=== PATIENT | female | born 1990 | race Caucasian/White ===

== ENCOUNTER 2019-01-15 18:25 | Emergency (ER) | payer BC, OTHER ==
--- NOTE | 2019-01-15 19:19 | EDPHYS ---
Physician Documentation [facility] Name: Darshana Monge Age: 28 yrs Sex: Female : 1990 Arrival Date: 01/15/2019 Time: 18:26 Bed 26 Private MD: ED Physician Yakov Conde HPI: 01/15 19:11 This 28 yrs old Female presents to ER via Ambulatory with complaints of jr8 Allergic Reaction. 19:11 The patient presents with rash. Onset: The symptoms/episode began/occurred gradually, 2 jr8 day(s) ago, and became worse. Associated signs and symptoms: Pertinent positives: itching. Possible causes: NSAIDs, etodolac. At home the patient or guardian has treated the symptoms with nothing. Severity of symptoms: At their worst the symptoms were mild in the emergency department the symptoms are unchanged. The patient has not experienced similar symptoms in the past. The patient has not recently seen a physician. was started on etodolac for tennis elbow. Since on it has developed rash that itches . 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 - Social history:: Smoking status: Patient/guardian denies using tobacco. - Ebola Screening: : Patient negative for fever greater than or equal to 101.5 degrees Fahrenheit, and additional compatible Ebola Virus Disease symptoms Patient denies exposure to infectious person Patient denies travel to an Ebola-affected area in the 21 days before illness onset No symptoms or risks identified at this time. ROS: 19:11 Eyes: Negative for injury, pain, redness, and discharge, ENT: Negative for injury, jr8 pain, and discharge, Neck: Negative for injury, pain, and swelling, Cardiovascular: Negative for chest pain, palpitations, and edema, Respiratory: Negative for shortness of breath, cough, wheezing, and pleuritic chest pain, Abdomen/GI: Negative for abdominal pain, nausea, vomiting, diarrhea, and constipation, Back: Negative for injury and pain, MS/Extremity: Negative for injury and deformity, Neuro: Negative for headache, weakness, numbness, tingling, and seizure. 19:11 Skin: Positive for rash. Exam: 19:11 Eyes: Pupils equal round and reactive to light, extra-ocular motions intact. Lids and jr8 lashes normal. Conjunctiva and sclera are non-icteric and not injected. Cornea within normal limits. Periorbital areas with no swelling, redness, or edema. ENT: Nares patent. No nasal discharge, no septal abnormalities noted. Tympanic membranes are normal and external auditory canals are clear. Oropharynx with no redness, swelling, or masses, exudates, or evidence of obstruction, uvula midline. Mucous membranes moist. Neck: Trachea midline, no thyromegaly or masses palpated, and no cervical lymphadenopathy. Supple, full range of motion without nuchal rigidity, or vertebral point tenderness. No Meningismus. Cardiovascular: Regular rate and rhythm with a normal S1 and S2. No gallops, murmurs, or rubs. Normal PMI, no JVD. No pulse deficits. Respiratory: Lungs have equal breath sounds bilaterally, clear to auscultation and percussion. No rales, rhonchi or wheezes noted. No increased work of breathing, no retractions or nasal flaring. Abdomen/GI: Soft, non-tender, with normal bowel sounds. No distension or tympany. No guarding or rebound. No evidence of tenderness throughout. Back: No spinal tenderness. No costovertebral tenderness. Full range of motion. MS/ Extremity: Pulses equal, no cyanosis. Neurovascular intact. Full, normal range of motion. Neuro: Awake and alert, GCS 15, oriented to person, place, time, and situation. Cranial nerves II-XII grossly intact. Motor strength 5/5 in all extremities. Sensory grossly intact. Cerebellar exam normal. Normal gait. 19:11 Skin: rash a mild rash is noted, rash can be described as erythematous, papular, and is diffusely located. Vital Signs: 18:43 BP 120 / 79; Pulse 84; Resp 16; Temp 97.8; Pulse Ox 100% on R/A; Weight 81.65 kg; iw Height 5 ft. 4 in. (162.56 cm); 19:30 BP 125 / 81; Pulse 87; Resp 18 S; Pulse Ox 100% on R/A; ca1 18:43 Body Mass Index 30.90 (81.65 kg, 162.56 cm) MDM: 19:05 Patient medically screened. jr8 19:11 Data reviewed: vital signs, nurses notes, and as a result, I will discharge patient. jr8 Data interpreted: Pulse oximetry: on room air is 100 %. Interpretation: normal. Counseling: I had a detailed discussion with the patient and/or guardian regarding: the historical points, exam findings, and any diagnostic results supporting the discharge/admit diagnosis, the need for outpatient follow up, a family practitioner, to return to the emergency department if symptoms worsen or persist or if there are any questions or concerns that arise at home. Administered Medications: 19:12 Drug: Benadryl 25 mg Route: PO; ca1 19:24 Follow up: Response: Medication administered at discharge. ca1 19:13 Drug: Pepcid 20 mg Route: PO; ca1 19:24 Follow up: Response: Medication administered at discharge. ca1 19:15 Drug: SOLU-Medrol 125 mg Route: IM; Site: right gluteus; ca1 19:24 Follow up: Response: Medication administered at discharge. ca1 Disposition: 01/15/19 19:18 Discharged to Home. Impression: Acute Allergic Reaction . - Condition is Stable. - Discharge Instructions: Anaphylactic Reaction, Adult. - Prescriptions for Pepcid 20 mg Oral Tablet - take 1 tablet by ORAL route every 12 hours for 5 days; 10 tablet. Prednisone 20 mg Oral Tablet - take 1 tablet by ORAL route once daily for 5 days; 5 tablet. - Medication Reconciliation Form, Thank You Letter, Antibiotic Education, Prescription Opioid Use form. - Follow up: Private Physician; When: 5 - 6 days; Reason: Recheck today's complaints, Continuance of care, Re-evaluation by your physician. - Problem is new. - Symptoms have improved. - Notes: Benadryl OTC 25 mg as needed for rash and itching Signatures: Kyleigh Tolbert, RN RN Luis Enrique Daly PA PA jr8 Mariana Crowley RN RN ca1 Corrections: (The following items were deleted from the chart) 19:32 19:18 01/15/2019 19:18 Discharged to Home. Impression: Acute Allergic Reaction . ca1 Condition is Stable. Forms are Medication Reconciliation Form, Thank You Letter, Antibiotic Education, Prescription Opioid Use. Follow up: Private Physician; When: 5 - 6 days; Reason: Recheck today's complaints, Continuance of care, Re-evaluation by your physician. Problem is new. Symptoms have improved. jr8
--- NOTE | 2019-01-15 19:19 | ER ---
Nurse's Notes [facility] Name: Darshana Monge Age: 28 yrs Sex: Female : 1990 Arrival Date: 01/15/2019 Time: 18:26 Bed 26 Private MD: Diagnosis: Acute Allergic Reaction Presentation: 01/15 18:40 Presenting complaint: Patient states: believes she is having allergic reaction to iw etodolac that she started last Friday, c/o rash and sore throat, no fever. Transition of care: patient was not received from another setting of care. 18:40 Method Of Arrival: Ambulatory iw 18:42 Onset of symptoms was January 12, 2019. Risk Assessment: Do you want to hurt yourself or iw someone else? Patient reports no desire to harm self or others. Initial Sepsis Screen: Does the patient meet any 2 criteria? No. Patient's initial sepsis screen is negative. Does the patient have a suspected source of infection? No. Patient's initial sepsis screen is negative. Care prior to arrival: None. 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 - Social history:: Smoking status: Patient/guardian denies using tobacco. - Ebola Screening: : Patient negative for fever greater than or equal to 101.5 degrees Fahrenheit, and additional compatible Ebola Virus Disease symptoms Patient denies exposure to infectious person Patient denies travel to an Ebola-affected area in the 21 days before illness onset No symptoms or risks identified at this time. Screenin:02 Abuse screen: Denies threats or abuse. Denies injuries from another. Nutritional ca1 screening: No deficits noted. Tuberculosis screening: No symptoms or risk factors identified. Fall Risk None identified. Assessment: 19:02 General: Appears in no apparent distress. comfortable, Behavior is calm, cooperative, ca1 appropriate for age. Pain: Denies pain. Neuro: Level of Consciousness is awake, alert, obeys commands, Oriented to person, place, time, situation. Cardiovascular: Heart tones S1 S2 present Capillary refill < 3 seconds Patient's skin is warm and dry. Respiratory: Airway is patent Respiratory effort is even, unlabored, Respiratory pattern is regular, symmetrical, Breath sounds are clear bilaterally. GI: Abdomen is round non-distended, Bowel sounds present X 4 quads. Abd is soft and non tender X 4 quads. : No deficits noted. No signs and/or symptoms were reported regarding the genitourinary system. EENT: No deficits noted. No signs and/or symptoms were reported regarding the EENT system. Derm: Skin is intact, is healthy with good turgor, Skin is pink, warm \T\ dry. Rash noted that is red, raised, on right arm and left arm Reports itching. Musculoskeletal: Circulation, motion, and sensation intact. Capillary refill < 3 seconds. 19:30 Reassessment: Patient appears in no apparent distress at this time. Patient and/or ca1 family updated on plan of care and expected duration. Pain level reassessed. Patient is alert, oriented x 3, equal unlabored respirations, skin warm/dry/pink. Vital Signs: 18:43 BP 120 / 79; Pulse 84; Resp 16; Temp 97.8; Pulse Ox 100% on R/A; Weight 81.65 kg; iw Height 5 ft. 4 in. (162.56 cm); 19:30 BP 125 / 81; Pulse 87; Resp 18 S; Pulse Ox 100% on R/A; ca1 18:43 Body Mass Index 30.90 (81.65 kg, 162.56 cm) iw ED Course: 18:26 Patient arrived in ED. rg4 18:42 Triage completed. iw 18:43 Arm band placed on. iw 18:58 Mariana Crowley, RN is Primary Nurse. ca1 19:02 Patient has correct armband on for positive identification. Bed in low position. Call ca1 light in reach. Side rails up X 1. Pulse ox on. NIBP on. Warm blanket given. 19:05 Luis Enrique Daly PA is PHCP. jr8 19:05 Yakov Conde MD is Attending Physician. jr8 19:31 No provider procedures requiring assistance completed. Patient did not have IV access ca1 during this emergency room visit. Administered Medications: 19:12 Drug: Benadryl 25 mg Route: PO; ca1 19:24 Follow up: Response: Medication administered at discharge. ca1 19:13 Drug: Pepcid 20 mg Route: PO; ca1 19:24 Follow up: Response: Medication administered at discharge. ca1 19:15 Drug: SOLU-Medrol 125 mg Route: IM; Site: right gluteus; ca1 19:24 Follow up: Response: Medication administered at discharge. ca1 Outcome: 19:18 Discharge ordered by MD. oden 19:31 Discharged to home ambulatory. ca1 19:31 Condition: stable 19:31 Discharge instructions given to patient, Instructed on discharge instructions, follow up and referral plans. medication usage, Demonstrated understanding of instructions, follow-up care, medications, Prescriptions given X 2. 19:32 Patient left the ED. ca1 Signatures: Kyleigh Tolbert, RN RN Luis Enrique Farrell PA PA jr8 Garcia, Rubi rg4 Mariana Crowley RN RN ca1
[2019-01-15] MEDS ORDERED: METHYLPREDNISOLONE 125 MG INJ ONE (19:31)
[2019-01-15] MEDS ORDERED: DIPHENHYDRAMINE 25 MG TAB/CAP ONE (19:31)
[2019-01-15] MEDS ORDERED: FAMOTIDINE 20 MG TAB ONE (19:31)
[2019-01-15 20:10] VITALS: TEMP 97.8; O2SAT 100
[2019-01-15 20:18] VITALS: BP 125/81
== END 2019-01-15 19:32 | disposition home or self-care (01) ==
LOC: ER 18:25
DX: T39.395A Adverse effect of other nonsteroidal anti-inflammatory drugs [NSAID], initial encounter (principal); Y92.9 Unspecified place or not applicable
CPT/HCPCS: J2930

== ENCOUNTER 2019-03-05 17:45 | Emergency (ER) | payer BC ==
[2019-03-05 18:28] LABS: Absolute Lymphocytes (CBC) 2.9 K/uL (0.7-4.9); Absolute Monocytes 0.9 K/uL (0.1-1.3); Absolute Neutrophil 5.8 K/uL (1.8-8.0); Basophils % 0.7 % (0-1.3); Eosinophils % 3.6 % (0-4.4); Hematocrit 37.5 % (36.0-45.0); Lymphocytes % 28.7 % (15.3-44.8); MPV 8.9 fL (7.6-11.3); Monocytes % 8.7 % (3.3-12.3); RBC Red Blood Cell Count 4.19 M/uL (3.86-4.86)
[2019-03-05 18:39] LABS: Urine Blood 1+ (NEG); Urine Glucose NEGATIVE (NEG); Urine Protein 1+ (NEG); Urine Specific Gravity >1.030 (1.005-1.030); Urine pH 5.5 (5.0-7.0)
[2019-03-05 18:45] LABS: Albumin 3.9 g/dL (3.4-5.0); Bilirubin Direct 0.1 mg/dL (0-0.2); Bilirubin Total 0.4 mg/dL (0.2-1.0); Potassium 3.2 mmol/L (3.5-5.1); Protein, Total 7.3 g/dL (6.4-8.2)
--- NOTE | 2019-03-05 19:08 | RAD REPORT ---
EXAM DESCRIPTION: US - Abdomen Exam Limited - 03/05/2019 6:54 pm CLINICAL HISTORY: Abdominal pain. COMPARISON: None. FINDINGS: Multiple gallstones. Mild gallbladder wall thickening. The biliary tree is upper limits normal caliber IMPRESSION: Cholelithiasis. Mild gallbladder wall thickening may indicate cholecystitis.
--- NOTE | 2019-03-05 20:04 | EDPHYS ---
Physician Documentation [facility] Name: Darshana Monge Age: 28 yrs Sex: Female : 1990 Arrival Date: 03/05/2019 Time: 17:47 Bed 15 Private MD: ED Physician Zechariah Langford HPI: 03/05 18:00 This 28 yrs old Female presents to ER via Ambulatory with complaints of cp Abdominal Pain. 18:00 The patient presents with abdominal pain in the epigastric area, in the right upper cp quadrant. Onset: The symptoms/episode began/occurred 5 day(s) ago. The symptoms do not radiate. 18:00 Associated signs and symptoms: Pertinent positives: nausea, Pertinent negatives: blood cp in stools, chest pain, constipation, diarrhea, dysuria, fever, vomiting. 18:00 Modifying factors: the symptoms are aggravated by pressure. 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 - Social history:: Smoking status: Patient/guardian denies using tobacco. - Ebola Screening: : No symptoms or risks identified at this time. ROS: 18:05 Eyes: Negative for injury, pain, redness, and discharge. cp 18:05 Constitutional: Negative for body aches, chills, fever, poor PO intake. 18:05 ENT: Negative for drainage from ear(s), ear pain, sore throat, difficulty swallowing, cp difficulty handling secretions. 18:05 Cardiovascular: Negative for chest pain, palpitations. 18:05 Respiratory: Negative for cough, shortness of breath, wheezing. 18:05 Abdomen/GI: Positive for abdominal pain, nausea, Negative for vomiting, diarrhea, constipation, anorexia, black/tarry stool, rectal bleeding. 18:05 Back: Negative for pain at rest, pain with movement, radiated pain. 18:05 : Negative for urinary symptoms, vaginal bleeding, vaginal discharge. 18:05 Skin: Negative for rash. 18:05 Neuro: Negative for dizziness, weakness. 18:05 All other systems are negative. Exam: 18:15 Constitutional: The patient appears in no acute distress, alert, awake, non-toxic, well cp developed, well nourished. 18:15 Head/Face: Normocephalic, atraumatic. cp 18:15 Eyes: Periorbital structures: appear normal, Conjunctiva: normal, no exudate, no injection, Sclera: no appreciated abnormality, Lids and lashes: appear normal, bilaterally. 18:15 ENT: External ear(s): are unremarkable, Nose: is normal, Mouth: is normal, Posterior pharynx: is normal, airway is patent. 18:15 Neck: ROM/movement: is normal, is supple, without pain, no range of motions limitations, no nuchal rigidity. 18:15 Chest/axilla: Inspection: normal. 18:15 Cardiovascular: Rate: normal, Rhythm: regular. 18:15 Respiratory: the patient does not display signs of respiratory distress, Respirations: normal, no use of accessory muscles, no retractions, labored breathing, is not present. 18:15 Abdomen/GI: Inspection: abdomen appears normal, Bowel sounds: active, all quadrants, Palpation: soft, in all quadrants, mild abdominal tenderness, in the epigastric area and right upper quadrant, rebound tenderness, is not appreciated, involuntary guarding, is not appreciated. 18:15 Back: pain, is absent, ROM is normal. Vital Signs: 17:50 BP 136 / 76; Pulse 84; Resp 16 S; Temp 98.5(TE); Pulse Ox 99% on R/A; Weight 84.82 kg aa5 (R); Height 5 ft. 4 in. (162.56 cm) (R); Pain 5/10; 18:42 BP 132 / 70; Pulse 88; Resp 16; Pulse Ox 100% on R/A; Pain 5/10; sg 19:40 BP 100 / 51; Pulse 65; Resp 18; Pulse Ox 100% on R/A; wh 17:50 Body Mass Index 32.10 (84.82 kg, 162.56 cm) aa5 MDM: 17:59 Patient medically screened. cp 18:00 Differential diagnosis: pancreatitis, Pyelonephritis, Ureterolithiasis, urinary tract cp infection. 20:00 Data reviewed: vital signs, nurses notes, lab test result(s), radiologic studies, CT cp scan. 20:01 Counseling: I had a detailed discussion with the patient and/or guardian regarding: the cp historical points, exam findings, and any diagnostic results supporting the discharge/admit diagnosis, lab results, radiology results, to return to the emergency department if symptoms worsen or persist or if there are any questions or concerns that arise at home. 20:01 Response to treatment: the patient's symptoms have markedly improved after treatment, cp and as a result, I will discharge patient. 03/05 18:02 Order name: Basic Metabolic Panel; Complete Time: 19:50 cp 03/05 18:02 Order name: CBC with Diff; Complete Time: 19:50 cp 03/05 18:02 Order name: Creatinine for Radiology; Complete Time: 19:50 cp 03/05 18:02 Order name: Hepatic Function; Complete Time: 19:50 cp 03/05 18:02 Order name: Lipase; Complete Time: 19:50 cp 03/05 18:09 Order name: Urine Dipstick--Ancillary (enter results); Complete Time: 19:50 ms 03/05 17:54 Order name: Urine Dipstick-Ancillary (obtain specimen); Complete Time: 18:26 cp 03/05 17:54 Order name: Urine Test (obtain specimen); Complete Time: 18:26 cp 03/05 18:02 Order name: IV Saline Lock; Complete Time: 18:26 cp 03/05 18:02 Order name: Labs collected and sent; Complete Time: 18:26 cp 03/05 18:02 Order name: US Abdomen Limited: epigastric/RUQ pain; Complete Time: 19:50 cp 03/05 18:09 Order name: Urine --Ancillary (enter results); Complete Time: 19:50 ms Administered Medications: 20:17 Drug: GI Cocktail without - (Maalox Suspension 30 ml, Lidocaine Liquid 2 % 15 wh ml) Route: PO; 20:27 Follow up: Response: No adverse reaction 20:17 Drug: Potassium Effervescent Tablet 50 mEq Route: PO; 20:27 Follow up: Response: No adverse reaction Disposition: 03/05/19 20:02 Discharged to Home. Impression: Cholelithiasis. - Condition is Stable. - Discharge Instructions: Biliary Colic, Adult, Cholelithiasis. - Prescriptions for Bentyl 20 mg Oral Tablet - take 2 tablet by ORAL route every 6 hours As needed; 40 tablet. Zofran 4 mg Oral Tablet - take 1 tablet by ORAL route every 12 hours As needed; 20 tablet. - Medication Reconciliation Form, Thank You Letter, Antibiotic Education, Prescription Opioid Use form. - Follow up: Chet Aparicio MD; When: 2 - 3 days; Reason: cholelithiasis. - Problem is new. - Symptoms have improved. Addendum: 03/08/2019 11:56 Co-signature as Attending Physician, Zechariah Langford MD I agree with the assessment and k dr plan of care. Signatures: Dispatcher [employer] EDOR Zechariah Langford MD MD [facility] Sheree Carlton RN RN aa5 Jerome Clifton PA PA Radha Johnson Corrections: (The following items were deleted from the chart) 03/05 17:50 17:48 Allergies: No Known Allergies; aa5 aa5 17:50 17:50 Allergies: edolorac; aa5 aa5 20:28 20:02 03/05/2019 20:02 Discharged to Home. Impression: Cholelithiasis. Condition is wh Stable. Forms are Medication Reconciliation Form, Thank You Letter, Antibiotic Education, Prescription Opioid Use. Follow up: Dr. Chet Aparicio; When: 2 - 3 days; Reason: cholelithiasis. Problem is new. Symptoms have improved. cp
--- NOTE | 2019-03-05 20:04 | ER ---
Nurse's Notes [facility] Name: Darshana Monge Age: 28 yrs Sex: Female : 1990 Arrival Date: 03/05/2019 Time: 17:47 Bed 15 Private MD: Diagnosis: Cholelithiasis Presentation: 03/05 17:48 Presenting complaint: Patient states: RUQ pain that began Friday. Pt denies vomiting, aa5 diarrhea. Reports nausea. Transition of care: patient was not received from another setting of care. Onset of symptoms was February 2019. Risk Assessment: Do you want to hurt yourself or someone else? Patient reports no desire to harm self or others. Initial Sepsis Screen: Does the patient meet any 2 criteria? No. Patient's initial sepsis screen is negative. Does the patient have a suspected source of infection? No. Patient's initial sepsis screen is negative. Care prior to arrival: None. 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 - Social history:: Smoking status: Patient/guardian denies using tobacco. - Ebola Screening: : No symptoms or risks identified at this time. Screenin:15 Abuse screen: Denies threats or abuse. Denies injuries from another. Nutritional sg screening: No deficits noted. Tuberculosis screening: No symptoms or risk factors identified. Never had TB. Fall Risk None identified. Assessment: 18:15 General: Appears in no apparent distress. well groomed, well developed, well nourished, sg Behavior is calm, cooperative, appropriate for age. Pain: Complains of pain in suprapubic area, right lower quadrant and left lower quadrant Quality of pain is described as aching. Neuro: Level of Consciousness is awake, alert, obeys commands, Oriented to person, place, time, Moves all extremities. Full function Gait is steady, Speech is normal, Facial symmetry appears normal. Cardiovascular: Patient's skin is warm and dry. Chest pain is denied. Respiratory: Airway is patent Respiratory effort is even, unlabored, Respiratory pattern is regular, symmetrical. GI: Abdomen is flat, non-distended, Reports lower abdominal pain, nausea. : No signs and/or symptoms were reported regarding the genitourinary system. EENT: No signs and/or symptoms were reported regarding the EENT system. Derm: Skin is pink, warm \T\ dry. Musculoskeletal: No signs and/or symptoms reported regarding the musculoskeletal system. 18:42 Reassessment: ultrasound at bedside at this time. sg 19:39 Reassessment: Patient appears in no apparent distress at this time. Patient and/or wh family updated on plan of care and expected duration. Pain level reassessed. Patient is alert, oriented x 3, equal unlabored respirations, skin warm/dry/pink. Vital Signs: 17:50 BP 136 / 76; Pulse 84; Resp 16 S; Temp 98.5(TE); Pulse Ox 99% on R/A; Weight 84.82 kg aa5 (R); Height 5 ft. 4 in. (162.56 cm) (R); Pain 5/10; 18:42 BP 132 / 70; Pulse 88; Resp 16; Pulse Ox 100% on R/A; Pain 5/10; sg 19:40 BP 100 / 51; Pulse 65; Resp 18; Pulse Ox 100% on R/A; wh 17:50 Body Mass Index 32.10 (84.82 kg, 162.56 cm) aa5 ED Course: 17:47 Patient arrived in ED. aa5 17:48 Arm band placed on. aa5 17:49 Triage completed. [facility] 17:53 Chetan Gates, MADDY is Primary Nurse. sg 17:53 Jerome Clifton PA is PHCP. cp 17:53 Zechariah Langford MD is Attending Physician. cp 18:15 Urine collected: clean catch specimen. sg 18:24 Initial lab(s) drawn, by me, sent to lab. Inserted saline lock: 20 gauge in right 5 antecubital area, using aseptic technique. Blood collected. 18:25 Patient has correct armband on for positive identification. Placed in gown. Bed in low mh5 position. Call light in reach. Side rails up X 1. Warm blanket given. Pulse ox on. NIBP on. 18:26 Urine --Ancillary (enter results) Sent. [facility] 18:26 Urine Dipstick--Ancillary (enter results) Sent. [facility] 18:26 Basic Metabolic Panel Sent. [facility] 18:26 CBC with Diff Sent. [facility] 18:26 Creatinine for Radiology Sent. [facility] 18:26 Hepatic Function Sent. [facility] 18:26 Lipase Sent. 5 18:54 US Abdomen Limited: epigastric/RUQ pain In Process Unspecified. EDMS 18:54 Ultrasound completed. Patient tolerated well. 3 19:35 Primary Nurse role handed off by Chetan Gates RN ed1 19:39 Radha Johnson is Primary Nurse. 20:02 Chet Aparicio MD is Referral Physician. cp 20:25 No provider procedures requiring assistance completed. IV discontinued, intact, bleeding controlled, No redness/swelling at site. Administered Medications: 20:17 Drug: GI Cocktail without - (Maalox Suspension 30 ml, Lidocaine Liquid 2 % 15 wh ml) Route: PO; 20:27 Follow up: Response: No adverse reaction 20:17 Drug: Potassium Effervescent Tablet 50 mEq Route: PO; 20:27 Follow up: Response: No adverse reaction Outcome: 20:02 Discharge ordered by MD. cp 20:26 Discharged to home ambulatory. 20:26 Condition: good 20:26 Discharge instructions given to patient, Instructed on discharge instructions, follow up and referral plans. medication usage, POC Cholelithiasis Demonstrated understanding of instructions, follow-up care, medications, POC Prescriptions given X 2. 20:28 Patient left the ED. Signatures: Dispatcher [employer] EDWY Chetan Gates RN RN Sheree Carlton RN RN [id number] Naima Castillo RN RN ed1 Jerome Clifton PA PA cp Martinez, Maria [facility] Radha Johnson Susu Daly 3 Corrections: (The following items were deleted from the chart) 17:50 17:48 Allergies: No Known Allergies; aa5 aa5 17:50 17:50 Allergies: edolorac; aa5 aa5
[2019-03-05] MEDS ORDERED: MAGNE/ALUM HYDROXD 30 ML UCUP ONE (20:21)
[2019-03-05] MEDS ORDERED: LIDOCAINE VISCOUS 2% SOLN 15 ML UDC ONE (20:21)
[2019-03-05] MEDS ORDERED: POTASSIUM 25 MEQ EFFERV TAB ONE (20:22)
[2019-03-05 20:52] VITALS: TEMP 98.5
[2019-03-05 20:55] VITALS: O2SAT 100
[2019-03-05 20:56] VITALS: BP 100/51
== END 2019-03-05 20:28 | disposition home or self-care (01) ==
LOC: ER 17:45
DX: K80.20 Calculus of gallbladder without cholecystitis without obstruction (principal); Z88.8 Allergy status to other drugs, medicaments and biological substances
CPT/HCPCS: 36415; 76705; 80048; 80076; 81003; 81025; 83690; 85025; 99284

== ENCOUNTER 2019-03-12 08:27 | Day surgery (SDC) | payer BC ==
[2019-03-12 08:42] LABS: Specific Gravity >= 1.030 (1.005-1.030)
[2019-03-12] MEDS ORDERED: Ringers Lactate 1,000 ML IV ONE (08:58)
[2019-03-12] MEDS ORDERED: CEFOXITIN/SWI 1gm 1 GM/10 ML SYR ONE (09:05)
[2019-03-12 09:06] LABS: Albumin 3.9 g/dL (3.4-5.0); Bilirubin Direct 0.1 mg/dL (0-0.2); Bilirubin Total 0.4 mg/dL (0.2-1.0); Protein, Total 7.4 g/dL (6.4-8.2)
[2019-03-12] MEDS ORDERED: LIDOCAINE 2% MPF 5 ML VIAL ONE (09:10)
[2019-03-12] MEDS ORDERED: DEXAMETHASONE 10 MG/ML VIAL ONE (09:10)
[2019-03-12] MEDS ORDERED: PROPOFOL 200 MG/20 ML VIAL IV ONE (09:10)
[2019-03-12] MEDS ORDERED: MIDAZOLAM HCL 2 MG/2 ML INJ ONE (09:10)
[2019-03-12] MEDS ORDERED: GLYCOPYRROLATE 0.2 MG/ML SYR ONE (09:10)
[2019-03-12] MEDS ORDERED: ROCURONIUM 50 MG/5 ML VIAL IV ONE (09:11)
[2019-03-12] MEDS ORDERED: FENTANYL CITR 250 MCG/5 ML ONE (09:11)
[2019-03-12 11:03] VITALS: O2SAT 100
[2019-03-12] MEDS: HYDROMORPHONE HCL 1 MG/ML INJ ONE ×2 (11:31→11:37)
[2019-03-12 11:51] VITALS: TEMP 97.6
[2019-03-12] MEDS ORDERED: HYDROCODONE/APAP 7.5/325 MG TAB ONE (12:30)
[2019-03-12 12:36] VITALS: BP 122/60
--- NOTE | 2019-03-12 13:03 | DS ---
The patient will go to day surgery and home when stable. Disposition: Home. Condition: Stable. Discharge Instructions: Resume home medications and diet. Activity as tolerated. No heavy lifting. Remove outer dressing in 2 days. Shower. Keep wound clean and dry. Keep Steri-Strips on at all t imes. Tylenol No. 3 one tablet p.o. q.4 p.r.n. pain. Follow up in my office in 1 week. Call for ap pointment. DION/DIRK Voice ID: [id number] Report ID: [id number]
--- NOTE | 2019-03-12 13:05 | OP ---
Date of Procedure: 03/12/2019 Surgeon: Chet Aparicio MD Palletiser Operator: OJ Koroma. Preoperative Diagnoses: Chronic cholecystitis and cholelithiasis. Postoperative Diagnoses: Chronic cholecystitis and cholelithiasis. Procedure: Laparoscopic cholecystectomy. Estimated Blood Loss: Minimal. Specimen: Gallbladder. Finding: As above. Anesthesia: General. Complications: None. Disposition: The patient tolerated the procedure in stable condition, taken to the Recovery in good general condition. Procedure In Detail: The patient was brought to the OR and placed in supine position. General anest hesia was begun. The patient was prepped and draped in usual sterile fashion. Marcaine 0.5% was inf iltrated locally. A 15-blade was used to make a 1 cm infraumbilical midline incision. Subcutaneous tissue divided. The fascia was identified and divided. A #1 Vicryl stay suture was placed. Periton eal cavity was entered with sharp and blunt dissection. A 12 mm trocar was placed into the peritonea l cavity under direct vision. Pneumoperitoneum was established. Then, three 5 trocars placed, 1 in the epigastrium just to the right of midline and 2 in the right subcostal region. Laparoscopy reveal ed a distended gallbladder, which was aspirated of clear bile consistent with inflammation and infect ion. Subsequently, the fundus retracted superiorly. Infundibulum was identified and retracted infer olaterally. Cystic duct and cystic artery were clearly identified with blunt dissection. Clips plac ed. Both structures divided. Cautery was used to remove the gallbladder from the liver bed. Bleedi ng on the liver bed was controlled with cautery. The gallbladder was retrieved through the umbilicus via an EndoCatch bag. Right upper quadrant was irrigated. Effluent was clear. No evidence of blee ding or bile leakage is appreciated. Subsequently, all trocars were removed under direct vision. St ay sutures were tied to each other to reapproximate the fascial defect. The subcutaneous wounds irri gated. Bleeding controlled with cautery. 3-0 chromic used to approximate the subcutaneous tissue an d close the skin. Sterile dressing was applied. The patient was awakened and taken to Recovery in g ood general condition. /MODL Voice ID: [id number] Report ID: [id number]
== END 2019-03-12 12:47 | disposition home or self-care (01) ==
LOC: OR 08:27
PROVIDERS: ATTEND Surgery
PROC: 0FT44ZZ Resection of Gallbladder, Percutaneous Endoscopic Approach (ICD-10-PCS; principal; 2019-03-12 09:45)
DX: K80.10 Calculus of gallbladder with chronic cholecystitis without obstruction (principal)
CPT/HCPCS: 36415; 80076; 81025; 82150; 88304; J1100; J1170; J2250; J2704; J3010